=== PATIENT | male | born 1990 | race Caucasian/White ===

== ENCOUNTER 2017-12-20 14:10 | Emergency (ER) | payer OTHER ==
[~2017-12-20] VITALS: Ht 180.3 cm; Wt 68.0 kg
[2017-12-20 14:19] VITALS: BP 142/99
[2017-12-20] MEDS ORDERED: PREDNISONE 20 M20 M1 PO (14:25)
[2017-12-20] MEDS ORDERED: ZPAK PO (14:25)
[2017-12-20] MEDS ORDERED: VENTOLIN HFA 1818 GM INH (14:25)
== END 2017-12-20 14:30 | disposition home or self-care (01) ==
LOC: M.ERS 14:10
DX: J40 Bronchitis, not specified as acute or chronic (principal); F32.9 Major depressive disorder, single episode, unspecified; F41.9 Anxiety disorder, unspecified; F43.10 Post-traumatic stress disorder, unspecified; F17.210 Nicotine dependence, cigarettes, uncomplicated; F15.10 Other stimulant abuse, uncomplicated

== ENCOUNTER 2020-05-03 06:17 | Inpatient (IN) | payer OTHER ==
[~2020-05-03] VITALS: Ht 180.3 cm; Wt 68.0 kg
[~2020-05-03 06:17] MED LIST: PREDNISONE 20 M20 M1 PO; VENTOLIN HFA 1818 GM INH; ZPAK PO
[2020-05-03 06:30] VITALS: BP 131/79
[2020-05-03] MEDS ORDERED: SUBOXONE 8 MG-1 EAC3 SUBLING (06:33)
[2020-05-03 07:01] LABS: HEMATOCRIT 39.1 % (42.0-52.0); HEMOGLOBIN 13.9 gm/dL (14.0-18.0); MCHC 35.4 g/dL (28.0-37.0); MCV 87.6 fL (80.0-100.0); MPV 7.4 fl. (7.2-11.1); NUCLEATED RBCS 0 /100WBC; PLATELET COUNT* 106 thou/uL (150-400); RBC 4.47 mil/uL (4.50-6.00); RDW-CV 12.2 % (10.5-14.5); WBC 20.5 thou/uL (4.0-11.0)
[2020-05-03 07:28] LABS: CALCIUM 8.1 mg/dL (8.5-10.1); POTASSIUM 3.1 mmol/L (3.5-5.1)
[2020-05-03 07:33] LABS: APTT 31.7 Seconds (25.0-31.3); INR 1.4; PROTIME 14.7 Seconds (9.20-11.50); TOTAL BILIRUBIN 1.7 mg/dL (<0.1-1.0)
[2020-05-03 08:13] LABS: ABSOLUTE LYMPHOCYTES 1.6 thou/uL (0.8-5.3); ABSOLUTE MONOCYTES 2.9 thou/uL (0.0-1.2); PLATELET ESTIMATE DECREASED
--- NOTE | 2020-05-03 11:16 | EKG ---
[place] [address] ELECTROCARDIOGRAM REPORT Name: SOHA CANALES Room: [place] [address] ADM IN ..#: [id number] Admission: 05/03/20 Attend Phys: Roe Perez Discharge: Date of : 89 Date of Service: 05/03/2026 Report #: [id number] THIS REPORT FOR: //name// [facility] ED Test Date: 2020-05-03 Test Time: 06:26:13 Pat Name: SOHA CANALES Department: Room: [facility] Gender: M Electrician: [place] : 1990 Requested By: Bharti Wilkes Order Number: [id number] MD: Ishmael Siegel Measurements Intervals [place] Rate: 120 P: 79 RI: 152 QRS: 51 QRSD: 98 T: 60 QT: 293 QTc: 414 Interpretive Statements Sinus tachycardia Probable left atrial enlargement No previous ECG available for comparison Electronically Signed On 05-03-2020 11:16:13 CDT by Ishmael Siegel [email or web address] <ELECTRONICALLY SIGNED> By: Ishmael Siegel MD, [facility] 05/03/20 1116 5 5 Ishmael Siegel MD, [facility] /EPI
[2020-05-03 11:59] LABS: BE -2.3 mmol/L (-2 to +3); PCO2 36.5 mmHg (35.0-45.0); PO2 70.7 mmHg (75.0-100.0); pH 7.399 (7.340-7.450)
[2020-05-03 13:46] VITALS: BP 117/71
== END 2020-05-03 13:35 | disposition short-term general hospital (02) | DRG 176 ==
LOC: M.ERS 06:17 → M.TBA-ER 09:32
PROVIDERS: Emergency Medicine Emergency Medical Services; Personal Emergency Response Attendant; ADMIT Family Medicine; ATTEND Family Medicine
DX: I26.99 Other pulmonary embolism without acute cor pulmonale (principal); E87.1 Hypo-osmolality and hyponatremia; F43.10 Post-traumatic stress disorder, unspecified; F41.9 Anxiety disorder, unspecified; F32.9 Major depressive disorder, single episode, unspecified; F11.11 Opioid abuse, in remission; R07.1 Chest pain on breathing; E87.6 Hypokalemia; F19.10 Other psychoactive substance abuse, uncomplicated; Z20.828 Contact with and (suspected) exposure to other viral communicable diseases; Z79.899 Other long term (current) drug therapy